=== PATIENT | male | born 1965 | race Hispanic/Latino ===

== ENCOUNTER 2017-05-16 12:08 | Emergency (ER) | payer SELFPAY ==
[~2017-05-16] VITALS: Ht 167.6 cm; Wt 82.0 kg
[2017-05-16 12:44] LABS: HEMATOCRIT 40.3 % (39.0-50.0); HEMOGLOBIN 14.1 g/dl (14.0-18.0); IMMATURE GRANULOCYTES 0.3 % (0.0-1.0); MEAN CORPUSCULAR HGB 33.3 pG CALC (26.0-32.0); NEUT# 1.09 thou/uL (1.82-7.42); RED BLOOD COUNT 4.24 mill/uL (4.70-6.10)
[2017-05-16 12:54] LABS: ALBUMIN 4.5 g/dL (3.2-5.0); ALKALINE PHOSPHATASE 84 u/l (38-126); ANION GAP 21 (6-22 (CALC)); BILIRUBIN, TOTAL 1.3 mg/dL (0.0-1.4); BUN 7 mg/dL (9-20); BUN/CREATININE RATIO 11 (12-20 (CALC)); CALCIUM 8.2 mg/dL (8.4-10.2); CARBON DIOXIDE 21 mmol/l (22-30); CHLORIDE 107 mmol/l (95-108); CREATININE 0.6 mg/dL (0.7-1.3); GFR > 60 ML/MIN (>=60 (CALC)); GFR FOR AFR.AMER. > 60 ML/MIN (>=60 (CALC)); GLUCOSE 85 mg/dL (75-110); POTASSIUM 4.9 mmol/l (3.5-5.1); SGOT/AST 287 u/l (17-59); SGPT/ALT 189 u/l (21-72); SODIUM 144 mmol/l (137-146); TOTAL PROTEIN 7.5 g/dL (6.3-8.2)
[2017-05-16 13:06] LABS: MYOGLOBIN 27 ng/mL (0 - 121)
[2017-05-16 15:15] VITALS: BP 133/82
== END 2017-05-16 15:34 | disposition home or self-care (01) | DRG 312 ==
LOC: ED 12:08
PROVIDERS: Emergency Medicine
DX: R55 Syncope and collapse (principal)

== ENCOUNTER 2017-06-08 20:33 | Emergency (ER) | payer SELFPAY ==
[~2017-06-08] VITALS: Ht 167.6 cm; Wt 82.0 kg
[2017-06-08] MEDS ORDERED: ALBUTERO2 XX (22:54)
[2017-06-09 00:05] VITALS: BP 105/73
== END 2017-06-09 00:05 | disposition home or self-care (01) | DRG 203 ==
LOC: ED 20:33
DX: J45.909 Unspecified asthma, uncomplicated (principal); R06.02 Shortness of breath

== ENCOUNTER 2017-08-03 20:39 | Emergency (ER) | payer SELFPAY ==
[~2017-08-03] VITALS: Ht 167.6 cm; Wt 79.5 kg
[~2017-08-03 20:39] MED LIST: ALBUTERO2 XX
[2017-08-03] MEDS ORDERED: BENADRYL 50MG C50 MG PO (22:49)
[2017-08-03 23:34] VITALS: BP 126/74
== END 2017-08-03 23:34 | disposition home or self-care (01) | DRG 918 ==
LOC: ED 20:39
DX: T63.441A Toxic effect of venom of bees, accidental (unintentional), initial encounter (principal); J45.909 Unspecified asthma, uncomplicated